=== PATIENT | female | born 1945 | race Caucasian/White ===

== ENCOUNTER 2017-09-20 14:21 | Outpatient (CLI) | payer OTHER ==
[~2017-09-20 14:21] MED LIST: LEVOXYL125 MCG; PROTONIX40 MG PO; ZANTAC300 MG PO; ZOFRAN4 MG PO
== END 2017-09-20 15:36 | disposition home or self-care (01) ==
LOC: MRI 14:21
DX: M54.5 Low back pain (principal); M54.2 Cervicalgia
CPT/HCPCS: 72141; 72148

== ENCOUNTER 2017-09-20 14:45 | Outpatient (CLI) | payer OTHER | END 2017-09-20 15:36 | disposition home or self-care (01) | LOC: RAD 14:45 | DX: M54.2 Cervicalgia (principal); M54.5 Low back pain ==

== ENCOUNTER 2017-11-29 16:08 | Emergency (ER) | payer OTHER ==
[~2017-11-29] VITALS: Ht 152.4 cm; Wt 54.0 kg
== END 2017-11-29 22:34 | disposition home or self-care (01) ==
LOC: ER 16:08
DX: K52.9 Noninfective gastroenteritis and colitis, unspecified (principal); K76.0 Fatty (change of) liver, not elsewhere classified; R10.32 Left lower quadrant pain

== ENCOUNTER 2018-06-29 12:54 | Outpatient (CLI) | payer OTHER | END 2018-06-29 13:05 | disposition home or self-care (01) | LOC: RAD 12:54 | DX: M13.88 Other specified arthritis, other site (principal); M54.5 Low back pain ==

== ENCOUNTER 2018-08-01 14:01 | Outpatient (CLI) | payer OTHER | END 2018-08-01 14:10 | disposition home or self-care (01) | LOC: RAD 14:01 | DX: M25.562 Pain in left knee (principal) ==

== ENCOUNTER 2018-08-29 06:53 | Emergency (ER) | payer OTHER ==
[~2018-08-29] VITALS: Ht 152.4 cm; Wt 54.4 kg
[2018-08-29] MEDS ORDERED: TESSALON PERLE100 M1 PO (12:27)
[2018-08-29] MEDS ORDERED: PROMETHAZINE W473 ML PO (12:27)
[2018-08-29] MEDS ORDERED: BUDEO.25 IH (12:27)
== END 2018-08-29 12:50 | disposition home or self-care (01) ==
LOC: ER 06:53
DX: J40 Bronchitis, not specified as acute or chronic (principal); B34.9 Viral infection, unspecified

== ENCOUNTER 2018-10-15 09:29 | Outpatient (CLI) | payer OTHER ==
[~2018-10-15 09:29] MED LIST changes: +BUDEO.25 IH; +PROMETHAZINE W473 ML PO; +TESSALON PERLE100 M1 PO
== END 2018-10-15 09:43 | disposition home or self-care (01) ==
LOC: NUCLEAR 09:29
DX: M81.0 Age-related osteoporosis without current pathological fracture (principal)

== ENCOUNTER 2018-10-29 10:22 | Outpatient (CLI) | payer OTHER | END 2018-10-29 11:41 | disposition home or self-care (01) | LOC: MRI 10:22 | DX: M25.552 Pain in left hip (principal); M79.605 Pain in left leg | CPT/HCPCS: 73721 ==

== ENCOUNTER → 2018-12-03 08:05 | Outpatient (CLI) | payer OTHER | END | disposition home or self-care (01) | LOC: LAB 08:05 | DX: E55.9 Vitamin D deficiency, unspecified (principal); M85.9 Disorder of bone density and structure, unspecified; E21.3 Hyperparathyroidism, unspecified; E88.89 Other specified metabolic disorders; M81.8 Other osteoporosis without current pathological fracture; E56.1 Deficiency of vitamin K ==

== ENCOUNTER 2019-03-04 13:01 | Outpatient (CLI) | payer OTHER | END 2019-03-04 13:10 | disposition home or self-care (01) | LOC: MRI 13:01 | DX: M25.562 Pain in left knee (principal); M23.92 Unspecified internal derangement of left knee | CPT/HCPCS: 73721 ==

== ENCOUNTER 2019-03-15 13:59 | Outpatient (CLI) | payer OTHER | END 2019-03-15 14:05 | disposition home or self-care (01) | LOC: RAD 13:59 | DX: M17.12 Unilateral primary osteoarthritis, left knee (principal) ==

== ENCOUNTER 2019-05-06 07:28 | Day surgery (SDC) | payer OTHER ==
[~2019-05-06 07:28] MED LIST changes: +ALENDRONATE PO; +ALLEGRA ALLERGY60 MG PO; +TIROSINT25 MCG PO
== END 2019-05-06 14:15 | disposition home or self-care (01) ==
LOC: CIR.AMB 07:28
DX: M23.322 Other meniscus derangements, posterior horn of medial meniscus, left knee (principal); M12.262 Villonodular synovitis (pigmented), left knee

== ENCOUNTER → 2019-09-26 | Outpatient (CLI) | payer OTHER | END | disposition home or self-care (01) | LOC: TOM 11:17 | DX: R10.84 Generalized abdominal pain (principal) ==

== ENCOUNTER 2019-10-14 06:56 | Outpatient (CLI) | payer OTHER | END 2019-10-14 07:01 | disposition home or self-care (01) | LOC: LAB 06:56 | DX: E88.89 Other specified metabolic disorders (principal); M81.8 Other osteoporosis without current pathological fracture; E21.2 Other hyperparathyroidism; E55.9 Vitamin D deficiency, unspecified; M85.88 Other specified disorders of bone density and structure, other site; E56.1 Deficiency of vitamin K ==

== ENCOUNTER → 2020-11-18 | Outpatient (CLI) | payer OTHER | END | disposition home or self-care (01) | LOC: PPH VACUNA | PROVIDERS: ATTEND Emergency Medicine Pediatric Emergency Medicine | DX: Z23 Encounter for immunization (principal) ==

== ENCOUNTER 2020-12-09 | Outpatient (CLI) | payer OTHER | END 2020-12-09 11:30 | disposition home or self-care (01) | LOC: PPH VACUNA | PROVIDERS: ATTEND Emergency Medicine Pediatric Emergency Medicine | DX: Z23 Encounter for immunization (principal) ==

== ENCOUNTER 2020-12-21 10:55 | Outpatient (CLI) | payer OTHER | END 2020-12-21 11:04 | disposition home or self-care (01) | LOC: TOM 10:55 | PROVIDERS: ATTEND Internal Medicine | DX: G93.89 Other specified disorders of brain (principal); R42 Dizziness and giddiness ==

== ENCOUNTER 2021-02-17 11:03 | Outpatient (CLI) | payer OTHER | END 2021-02-17 11:17 | disposition home or self-care (01) | LOC: MAMO-SONO 11:03 | PROVIDERS: ATTEND Internal Medicine | DX: N63.0 Unspecified lump in unspecified breast (principal); Z12.31 Encounter for screening mammogram for malignant neoplasm of breast ==

== ENCOUNTER 2021-02-23 12:54 | Outpatient (CLI) | payer OTHER | END 2021-02-23 13:06 | disposition home or self-care (01) | LOC: MRI 12:54 | PROVIDERS: ATTEND Neuromusculoskeletal Medicine & OMM | DX: I72.9 Aneurysm of unspecified site (principal); R42 Dizziness and giddiness; I65.1 Occlusion and stenosis of basilar artery; I65.09 Occlusion and stenosis of unspecified vertebral artery; I65.29 Occlusion and stenosis of unspecified carotid artery; Q28.2 Arteriovenous malformation of cerebral vessels | CPT/HCPCS: 70544; 70551 ==

== ENCOUNTER → 2021-03-19 13:15 | Outpatient (CLI) | payer OTHER | END | disposition home or self-care (01) | LOC: NUCLEAR 13:15 | PROVIDERS: ATTEND Internal Medicine | DX: M81.0 Age-related osteoporosis without current pathological fracture (principal) ==

== ENCOUNTER 2021-06-08 08:00 | Outpatient (CLI) | payer OTHER | END 2021-06-08 08:30 | disposition home or self-care (01) | LOC: PPH VACUNA 08:00 | PROVIDERS: ATTEND Emergency Medicine Pediatric Emergency Medicine | DX: Z23 Encounter for immunization (principal) ==

== ENCOUNTER 2021-07-27 07:14 | Outpatient (CLI) | payer OTHER | END 2021-07-27 07:16 | disposition home or self-care (01) | LOC: TOM 07:14 | PROVIDERS: ATTEND Internal Medicine | DX: K76.0 Fatty (change of) liver, not elsewhere classified (principal); N20.0 Calculus of kidney; R10.84 Generalized abdominal pain ==

== ENCOUNTER 2021-08-19 13:48 | Outpatient (CLI) | payer OTHER | END 2021-08-19 13:53 | disposition home or self-care (01) | LOC: RAD 13:48 | PROVIDERS: ATTEND Internal Medicine | DX: M54.6 Pain in thoracic spine (principal); M54.2 Cervicalgia; M54.59 Other low back pain ==

== ENCOUNTER 2021-12-27 08:00 | Outpatient (CLI) | payer OTHER | END 2021-12-27 08:30 | disposition home or self-care (01) | LOC: PPH VACUNA 08:00 | PROVIDERS: ATTEND Emergency Medicine Pediatric Emergency Medicine | DX: Z23 Encounter for immunization (principal) ==

== ENCOUNTER 2022-02-11 13:48 | Outpatient (CLI) | payer OTHER | END 2022-02-11 13:58 | disposition home or self-care (01) | LOC: MRI 13:48 | PROVIDERS: ATTEND Otolaryngology Otology & Neurotology | DX: M54.2 Cervicalgia (principal) | CPT/HCPCS: 72141 ==

== ENCOUNTER 2022-11-16 14:26 | Outpatient (CLI) | payer OTHER | END 2022-11-16 14:58 | disposition home or self-care (01) | LOC: RAD 14:26 | PROVIDERS: ATTEND Internal Medicine | DX: M54.6 Pain in thoracic spine (principal); M54.59 Other low back pain ==

== ENCOUNTER 2023-02-22 14:14 | Outpatient (CLI) | payer OTHER | END 2023-02-22 14:21 | disposition home or self-care (01) | LOC: SONOGRAMA 14:14 | PROVIDERS: ATTEND Internal Medicine | DX: M75.31 Calcific tendinitis of right shoulder (principal) ==